=== PATIENT | male | born 1965 | race Caucasian/White ===

== ENCOUNTER 2017-08-14 07:43 | Day surgery (SDC) | payer OTHER | END 2017-08-14 16:35 | disposition home or self-care (01) | LOC: AMB-ENDOS 07:43 | DX: K57.30 Diverticulosis of large intestine without perforation or abscess without bleeding (principal); Z12.11 Encounter for screening for malignant neoplasm of colon; D12.2 Benign neoplasm of ascending colon; K64.0 First degree hemorrhoids; K29.60 Other gastritis without bleeding ==

== ENCOUNTER 2018-09-03 09:34 | Day surgery (SDC) | payer OTHER | END 2018-09-03 15:15 | disposition home or self-care (01) | LOC: AMB-ENDOS 09:34 | DX: D12.4 Benign neoplasm of descending colon (principal); K64.0 First degree hemorrhoids; Z12.11 Encounter for screening for malignant neoplasm of colon ==